=== PATIENT | male | born 2000 | race Caucasian/White ===

== ENCOUNTER 2022-12-30 02:31 | Outpatient (CLI) | payer BC, SELFPAY | END 2022-12-30 02:32 | disposition home or self-care (01) | LOC: AMB 01-01 09:41 | PROVIDERS: Visit Provider Family Medicine | DX: R45.851 Suicidal ideations (principal) | CPT/HCPCS: A0425; A0429 ==

== ENCOUNTER 2022-12-30 02:58 | Emergency (ER) | payer BC, SELFPAY ==
[2022-12-30 02:59] VITALS: BP 141/100; PULSE 83; TEMP 36.1; O2SAT 96; BMI 20.6
--- NOTE | 2022-12-30 03:17 | PC.NURSE ---
patient placed in room 2, room 2 made safe room. patient changed into paper scrubs and personal items inventoried by security and locked in med room
--- NOTE | 2022-12-30 03:34 | ED_ITS ---
HPI - Psych General Chief Complaint: Psychiatric Problem/Disorder <Lidya Osman MD - Last Filed: 12/30/22 07:50> Stated Complaint: Mental Health <Lidya Osman MD - Last Filed: 12/30/22 07:50> Time Seen by Provider: 12/30/22 03:14 <Lidya Osman MD - Last Filed: 12/30/22 07:50> Source: patient and EMS <Lidya Osman MD - Last Filed: 12/30/22 07:50> Mode of arrival: EMS <Lidya Osman MD - Last Filed: 12/30/22 07:50> History of Present Illness HPI Narrative: 22-year-old male with prior inpatient mental health hospitalization presents to the emergency department with suicidal ideation. Patient's girlfriend called EMS because she found him with the waist tie of his rope around his neck stating that he was going to go to the [facility] and hang himself from it. He is very vague about his depression symptoms and suicidal ideation to me. It is very difficult to piece together this story. From what I can gather, he was hospitalized at [facility] in September of 2021. He tells me that he was not diagnosed with any mental health problems. He does however agree that he was discharged on a medication but believes he stopped after a couple of days. Is instructed to follow up with a provider at [facility] which he did. I can not tell if this was a mental health provider or a primary care provider. Nonetheless, patient has not been on medication for well over a year. He feels like he has been having increased suicidal ideation over the last couple of days. He does state that he would be willing to be hospitalized again, but does not have any insight into depression, anxiety or his feelings. He does have a history of daily marijuana use. He states that he does wonder if the marijuana is ?laced?. He quit his job in the last couple of weeks at [employer], thinking that he had something more promising lined up which fell through. When I ask about a significant other, he denies to me, stating probably not anymore but does not elaborate further. He does have family in the area, reports to me that he last talked to his brother's within the last 24 hours. It sounds like his father is not involved and his mother has a history of depression and bipolar but is involved in his life. He reports binge drinking on occasion, sounds like a few times per month. He also will sporadically use methamphetamines or Adderall, especially when working. He states today last use those around Thanksgiving. He notes no fever, no recent significant illness. No trauma, no history of self-injury. He denies any prior history of suicide attempt, but I do not have the details regarding his previous hospitalization. Girlfriend called EMS. He has been placed on a police hold. Past medical history notable for some sort of mental health hospitalization though I cannot see the details as to what. Also history of polysubstance abuse. No long-term medications, no allergies. Socially with binge drinking of alcohol, daily marijuana and sporadic amphetamines. Family history notable for depression and bipolar in his mother. Sounds like father had AIDS and cancer and is not involved in the patient's life. ROS is notable for the mood symptoms as above, otherwise denies times 12 systems, but with very poor insight. <Lidya Osman MD - Last Filed: 12/30/22 07:50> Related Data Allergies/Adverse Reactions: Allergies Allergy/AdvReac Type Severity Reaction Status Date / Time No Known Drug Allergies Allergy Verified 12/30/22 08:53 <Lidya Osman MD - Last Filed: 12/30/22 07:50> [facility] Social History: Social History Smoking Status: Never smoker Do you use any of these nicotine containing products: None How often do you have a drink containing alcohol: monthly or less AUDIT-C Alcohol total score: 1 Non-prescribed substance use: marijuana (any form) <Lidya Osman MD - Last Filed: 12/30/22 07:50> Exam Const: Vital Signs, click to edit/add: Vital Signs - 24 hr 12/30/22 02:59 12/30/22 04:03 12/30/22 05:30 Temperature 97 F L Pulse Rate [Pulse Oximeter] 83 70 Respiratory Rate 18 16 Blood Pressure [Le ft Upper Arm] 141/100 H 139/87 Pulse Oximetry 96 98 Oxygen Delivery Me thod Room Air Room Air 12/30/22 07:46 Temperature 98 F Pulse Rate [Pulse Oximeter] 73 Respiratory Rate 16 Blood Pressure [Le ft Upper Arm] 140/93 H Pulse Oximetry 98 Oxygen Delivery Me thod Room Air <Lidya Osman MD - Last Filed: 12/30/22 07:50> Vital Signs, click to edit/add: Vital Signs - 24 hr 12/30/22 02:59 12/30/22 04:03 12/30/22 05:30 Temperature 97 F L Pulse Rate [Pulse Oximeter] 83 70 Respiratory Rate 18 16 Blood Pressure [Le ft Upper Arm] 141/100 H 139/87 Pulse Oximetry 96 98 Oxygen Delivery Me thod Room Air Room Air 12/30/22 07:46 Temperature 98 F Pulse Rate [Pulse Oximeter] 73 Respiratory Rate 16 Blood Pressure [Le ft Upper Arm] 140/93 H Pulse Oximetry 98 Oxygen Delivery Me thod Room Air <Shayy Lennon MD - Last Filed: 12/30/22 12:29> Documenting provider has reviewed patient's vital signs: yes <Lidya Osman MD - Last Filed: 12/30/22 07:50> Common normals: alert <Lidya Osman MD - Last Filed: 12/30/22 07:50> General appearance: well kempt <Lidya Osman MD - Last Filed: 12/30/22 07:50> Orientation/consciousness: Yes awake <Lidya Osman MD - Last Filed: 12/30/22 07:50> Other: Calm, somewhat evasive with questions. Very poor insight. Normal grooming. No signs of trauma, self-injury. <Lidya Osman MD - Last Filed: 12/30/22 07:50> HENMT: Common normals: normocephalic <Lidya Osman MD - Last Filed: 12/30/22 07:50> Head and scalp: normal to inspection and normocephalic <Lidya Osman MD - Last Filed: 12/30/22 07:50> Face and sinus: normal facial exam <Lidya Osman MD - Last Filed: 12/30/22 07:50> Mouth: oral and palatal mucosa normal <MD Jonathan Thibodeaux Last Filed: 12/30/22 07:50> Eye: Common normals: PERRL, EOMs intact bilaterally and conjunctivae normal <MD Jonathan Thibodeaux Last Filed: 12/30/22 07:50> Conjunctiva: conjunctiva(e) normal <MD Jonathan Thibodeaux Last Filed: 12/30/22 07:50> Pupil: PERRL <MD Jonathan Thibodeaux Last Filed: 12/30/22 07:50> Neck & C-Spine: Common normals: full ROM and no lymphadenopathy <MD Jonathan Thibodeaux Last Filed: 12/30/22 07:50> Resp: Common normals: normal respiratory effort, no use of accessory muscles and clear to auscultation bilaterally <MD Jonathan Thibodeaux Last Filed: 12/30/22 07:50> Effort & inspection: able to speak in complete sentences <MD Jonathan Thibodeaux Last Filed: 12/30/22 07:50> Auscultation: clear to auscultation bilaterally <MD Jonathan Thibodeaux Last Filed: 12/30/22 07:50> Cardio: Common normals: regular rate, regular rhythm, S1 normal heart sound, S2 normal heart sound and no murmurs <MD Jonathan Thibodeaux Last Filed: 12/30/22 07:50> Rate: regular rate <MD Jonathan Thibodeaux Last Filed: 12/30/22 07:50> Rhythm: regular rhythm <MD Jonathan Thibodeaux Last Filed: 12/30/22 07:50> Heart sounds: S1 normal and S2 normal <MD Jonathan Thibodeaux Last Filed: 12/30/22 07:50> GI: Common normals: Normal to inspection, nondistended, normoactive bowel sounds present, soft to palpation, non-tender, no hepatosplenomegaly and no masses <MD Jonathan Thibodeaux Last Filed: 12/30/22 07:50> Palpation: soft and no hepatosplenomegaly <MD Jonathan Thibodeaux Last Filed: 12/30/22 07:50> Back & Pelvis: Common normals: thoracic and lumbar spine normal to inspection <MD Jonathan Thibodeaux Last Filed: 12/30/22 07:50> Extremity: Common normals: normal to inspection, full ROM, normal capillary refill and no pedal edema <Lidya Osman MD - Last Filed: 12/30/22 07:50> Neuro: [place] Coma Scale: document GCS findings [place] coma scale eye opening: Spontaneous (4) Marta coma scale verbal response: Orientated (5) Marta coma scale motor response: Obey commands (6) [place] coma scale total score: 15 <MD Jonathan Thibodeaux Last Filed: 12/30/22 07:50> [place] Coma Scale: document GCS findings [place] coma scale total score: 15 <Shayy Lennon MD - Last Filed: 12/30/22 12:29> Sensorium/orientation: awake and alert <MD Jonathan Thibodeaux Last Filed: 12/30/22 07:50> Motor exam: no tremor noted and no movement abnormalities noted <Lidya Osman MD - Last Filed: 12/30/22 07:50> Psych: Appearance: well kempt <MD Jonathan Thibodeaux Last Filed: 12/30/22 07:50> Attitude: calm and withdrawn <MD Jonathan Thibodeaux Last Filed: 12/30/22 07:50> Mood and affect: flat affect <MD Jonathan Thibodeaux Last Filed: 12/30/22 07:50> Thought content: no homicidality, no delusion(s) and no hallucination(s) <MD Jonathan Thibodeaux Last Filed: 12/30/22 07:50> Insight: limited <MD Jonathan Thibodeaux Last Filed: 12/30/22 07:50> Judgement: fair <MD Jonathan Thibodeaux Last Filed: 12/30/22 07:50> Skin: Common normals: no rashes or lesions noted <Lidya Osman MD - Last Filed: 12/30/22 07:50> Narrative: No signs of trauma or self-injury on skin <Lidya Osman MD - Last Filed: 12/30/22 07:50> General skin exam: no rashes or lesions noted <Lidya Osman MD - Last Filed: 12/30/22 07:50> Course Course Hospital Course: Took over the care for this patient. Lab work was fairly unremarkable. Urine drug screen positive for THC. Patient remained cooperative during his stay here. Except for transfer to [facility]. Of note, we did learn that the patient has history of schizophrenia has been off of his medications for the last 4-6 weeks. <Lidya Osman MD - Last Filed: 12/30/22 07:50> Vital Signs Vital signs: Initial Vital Signs Temperature 97 F L 12/30/22 02:59 Temperature Source Temporal Artery Scan 12/30/22 02:59 Pulse Rate 83 12/30/22 02:59 Blood Pressure 141/100 H 12/30/22 02:59 Blood Pressure Mean 113 12/30/22 02:59 Pulse Oximetry 96 12/30/22 02:59 Oxygen Delivery Method 12/30/22 02:59 Vital Signs Temperature 97 F L 12/30/22 02:59 Pulse Rate 83 12/30/22 02:59 Blood Pressure 141/100 H 12/30/22 02:59 Pulse Oximetry 96 12/30/22 02:59 Oxygen Delivery Method 12/30/22 02:59 Temperature 98 F 12/30/22 07:46 Pulse Rate 73 12/30/22 07:46 Respiratory Rate 16 12/30/22 07:46 Blood Pressure 140/93 H 12/30/22 07:46 Pulse Oximetry 98 12/30/22 07:46 Oxygen Delivery Method 12/30/22 07:46 <Lidya Osman MD - Last Filed: 12/30/22 07:50> Initial Vital Signs Temperature 97 F L 12/30/22 02:59 Temperature Source Temporal Artery Scan 12/30/22 02:59 Pulse Rate 83 12/30/22 02:59 Blood Pressure 141/100 H 12/30/22 02:59 Blood Pressure Mean 113 12/30/22 02:59 Pulse Oximetry 96 12/30/22 02:59 Oxygen Delivery Method 12/30/22 02:59 Vital Signs Temperature 97 F L 12/30/22 02:59 Pulse Rate 83 12/30/22 02:59 Blood Pressure 141/100 H 12/30/22 02:59 Pulse Oximetry 96 12/30/22 02:59 Oxygen Delivery Method 12/30/22 02:59 Temperature 98 F 12/30/22 07:46 Pulse Rate 73 12/30/22 07:46 Respiratory Rate 16 12/30/22 07:46 Blood Pressure 140/93 H 12/30/22 07:46 Pulse Oximetry 98 12/30/22 07:46 Oxygen Delivery Method 12/30/22 07:46 <Shayy Lennon MD - Last Filed: 12/30/22 12:29> MDM - Psych MDM Narrative Medical decision making narrative: Patient with suicidal plan, witnessed tonight by girlfriend. I do believe these high risk for suicide completion due to his poor insight, escalating symptoms over the last few days, quitting of job, marginalization of relationships. Patient is already on a police hold. Will obtain basic screening labs including toxicology. Await psychology assessment. I suspect he may benefit from hospitalization. Spoke with Dionna from [facility], she is recommending inpatient treatment, I agree. She will be in the process of locating an inpatient placement. Hold paperwork completed in anticipation of transfer. Will transfer care to my oncoming day shift partner. <Lidya Osman MD - Last Filed: 12/30/22 07:50> Differential Diagnosis Differential diagnosis: Likely suicidal ideation, depression and drug-induced psychotic disorder <Lidya Osman MD - Last Filed: 12/30/22 07:50> Medical Records Attestation: I reviewed the patient's medical records. <Lidya Osman MD - Last Filed: 12/30/22 07:50> Medical records narrative: History and physical from September of 2020, limited ER note from September of 2021. <Lidya Osman MD - Last Filed: 12/30/22 07:50> Lab Data Attestation: I reviewed the patient's lab results. <Lidya Osman MD - Last Filed: 12/30/22 07:50> Labs: Lab Results 12/30/22 12/30/22 12/30/22 Range/Units 03:32 03:50 03:50 WBC (4.50-11.00) K/uL RBC (4.30-5.90) m/uL Hgb (13.5-17.5) gm/dL Hct (37.0-53.0) % MCV (80-100) fL MCH (26-34) pg MCHC (32-36) gm/dL RDW Coeff of Tamia (11.5-15.5) % Plt Count (140-440) K/uL Neut % (Auto) (42.0-72.0) % Lymph % (Auto) (20-44) % Owen % (Auto) (0.0-11.0) % Eos % (Auto) (0.0-7.0) % Baso % (Auto) (0.0-3.0) % Neut # (Auto) (1.7-7.0) K/uL Lymph # (Auto) (0.90-2.90) K/uL Owen # (Auto) (0.00-0.90) K/UL Eos # (Auto) (0.00-0.50) K/uL Baso # (Auto) (0.00-0.30) K/uL Sodium (135-149) mmol/L Potassium (3.6-5.1) mmol/L Chloride (96-114) mmol/L Carbon Dioxide (20-32) mmol/L BUN (5-24) mg/dL Creatinine (0.5-1.5) mg/dL Estimated Creat Clear Estimated GFR ml/min Glucose (60-115) mg/dL Calcium (8.4-10.6) mg/dL TSH 3.390 (0.270-4.200) uIU/mL Salicylates (1.0-10) mg/dL Urine Opiates Screen Negative (Negative) Ur Oxycodone Screen Negative (Negative) Urine Methadone Screen Negative (Negative) Ur Propoxyphene Screen Negative (Negative) Acetaminophen (10.0-30.0) ug/mL Ur Barbiturates Screen Negative (Negative) U Tricyclic Antidepress Negative (Negative) Ur Phencyclidine Scrn Negative (Negative) Ur Amphetamines Screen Negative (Negative) U Methamphetamines Scrn Negative (Negative) U Benzodiazepines Scrn Negative (Negative) Urine Cocaine Screen Negative (Negative) U Marijuana (THC) Screen POSITIVE A* (Negative) Ur Drug Screen Comment See Note Ethyl Alcohol (0.01-0.03) % SARS-CoV-2 (PCR) Negative SARS-CoV-2 (Negative) 12/30/22 12/30/22 Range/Units 03:50 03:50 WBC 9.96 (4.50-11.00) K/uL RBC 6.07 H (4.30-5.90) m/uL Hgb 18.6 H (13.5-17.5) gm/dL Hct 52.5 (37.0-53.0) % MCV 87 (80-100) fL MCH 31 (26-34) pg MCHC 35 (32-36) gm/dL RDW Coeff of Tamia 11.3 L (11.5-15.5) % Plt Count 231 (140-440) K/uL Neut % (Auto) 78.4 H (42.0-72.0) % Lymph % (Auto) 13.7 L (20-44) % Owen % (Auto) 6.9 (0.0-11.0) % Eos % (Auto) 0.3 (0.0-7.0) % Baso % (Auto) 0.3 (0.0-3.0) % Neut # (Auto) 7.80 H (1.7-7.0) K/uL Lymph # (Auto) 1.40 (0.90-2.90) K/uL Owen # (Auto) 0.70 (0.00-0.90) K/UL Eos # (Auto) 0.03 (0.00-0.50) K/uL Baso # (Auto) 0.03 (0.00-0.30) K/uL Sodium 141 (135-149) mmol/L Potassium 3.3 L (3.6-5.1) mmol/L Chloride 106 (96-114) mmol/L Carbon Dioxide 25 (20-32) mmol/L BUN 17 (5-24) mg/dL Creatinine 0.8 (0.5-1.5) mg/dL Estimated Creat Clear 153.32 Estimated GFR 128 ml/min Glucose 114 (60-115) mg/dL Calcium 9.8 (8.4-10.6) mg/dL TSH (0.270-4.200) uIU/mL Salicylates < 1.0 L (1.0-10) mg/dL Urine Opiates Screen (Negative) Ur Oxycodone Screen (Negative) Urine Methadone Screen (Negative) Ur Propoxyphene Screen (Negative) Acetaminophen < 10.0 L (10.0-30.0) ug/mL Ur Barbiturates Screen (Negative) U Tricyclic Antidepress (Negative) Ur Phencyclidine Scrn (Negative) Ur Amphetamines Screen (Negative) U Methamphetamines Scrn (Negative) U Benzodiazepines Scrn (Negative) Urine Cocaine Screen (Negative) U Marijuana (THC) Screen (Negative) Ur Drug Screen Comment Ethyl Alcohol < 0.01 L (0.01-0.03) % SARS-CoV-2 (PCR) (Negative) <Lidya Osman MD - Last Filed: 12/30/22 07:50> Lab Results 12/30/22 12/30/22 12/30/22 Range/Units 03:32 03:50 03:50 WBC (4.50-11.00) K/uL RBC (4.30-5.90) m/uL Hgb (13.5-17.5) gm/dL Hct (37.0-53.0) % MCV (80-100) fL MCH (26-34) pg MCHC (32-36) gm/dL RDW Coeff of Tamia (11.5-15.5) % Plt Count (140-440) K/uL Neut % (Auto) (42.0-72.0) % Lymph % (Auto) (20-44) % Owen % (Auto) (0.0-11.0) % Eos % (Auto) (0.0-7.0) % Baso % (Auto) (0.0-3.0) % Neut # (Auto) (1.7-7.0) K/uL Lymph # (Auto) (0.90-2.90) K/uL Owen # (Auto) (0.00-0.90) K/UL Eos # (Auto) (0.00-0.50) K/uL Baso # (Auto) (0.00-0.30) K/uL Sodium (135-149) mmol/L Potassium (3.6-5.1) mmol/L Chloride (96-114) mmol/L Carbon Dioxide (20-32) mmol/L BUN (5-24) mg/dL Creatinine (0.5-1.5) mg/dL Estimated Creat Clear Estimated GFR ml/min Glucose (60-115) mg/dL Calcium (8.4-10.6) mg/dL TSH 3.390 (0.270-4.200) uIU/mL Salicylates (1.0-10) mg/dL Urine Opiates Screen Negative (Negative) Ur Oxycodone Screen Negative (Negative) Urine Methadone Screen Negative (Negative) Ur Propoxyphene Screen Negative (Negative) Acetaminophen (10.0-30.0) ug/mL Ur Barbiturates Screen Negative (Negative) U Tricyclic Antidepress Negative (Negative) Ur Phencyclidine Scrn Negative (Negative) Ur Amphetamines Screen Negative (Negative) U Methamphetamines Scrn Negative (Negative) U Benzodiazepines Scrn Negative (Negative) Urine Cocaine Screen Negative (Negative) U Marijuana (THC) Screen POSITIVE A* (Negative) Ur Drug Screen Comment See Note Ethyl Alcohol (0.01-0.03) % SARS-CoV-2 (PCR) Negative SARS-CoV-2 (Negative) 12/30/22 12/30/22 Range/Units 03:50 03:50 WBC 9.96 (4.50-11.00) K/uL RBC 6.07 H (4.30-5.90) m/uL Hgb 18.6 H (13.5-17.5) gm/dL Hct 52.5 (37.0-53.0) % MCV 87 (80-100) fL MCH 31 (26-34) pg MCHC 35 (32-36) gm/dL RDW Coeff of Tamia 11.3 L (11.5-15.5) % Plt Count 231 (140-440) K/uL Neut % (Auto) 78.4 H (42.0-72.0) % Lymph % (Auto) 13.7 L (20-44) % Owen % (Auto) 6.9 (0.0-11.0) % Eos % (Auto) 0.3 (0.0-7.0) % Baso % (Auto) 0.3 (0.0-3.0) % Neut # (Auto) 7.80 H (1.7-7.0) K/uL Lymph # (Auto) 1.40 (0.90-2.90) K/uL Owen # (Auto) 0.70 (0.00-0.90) K/UL Eos # (Auto) 0.03 (0.00-0.50) K/uL Baso # (Auto) 0.03 (0.00-0.30) K/uL Sodium 141 (135-149) mmol/L Potassium 3.3 L (3.6-5.1) mmol/L Chloride 106 (96-114) mmol/L Carbon Dioxide 25 (20-32) mmol/L BUN 17 (5-24) mg/dL Creatinine 0.8 (0.5-1.5) mg/dL Estimated Creat Clear 153.32 Estimated GFR 128 ml/min Glucose 114 (60-115) mg/dL Calcium 9.8 (8.4-10.6) mg/dL TSH (0.270-4.200) uIU/mL Salicylates < 1.0 L (1.0-10) mg/dL Urine Opiates Screen (Negative) Ur Oxycodone Screen (Negative) Urine Methadone Screen (Negative) Ur Propoxyphene Screen (Negative) Acetaminophen < 10.0 L (10.0-30.0) ug/mL Ur Barbiturates Screen (Negative) U Tricyclic Antidepress (Negative) Ur Phencyclidine Scrn (Negative) Ur Amphetamines Screen (Negative) U Methamphetamines Scrn (Negative) U Benzodiazepines Scrn (Negative) Urine Cocaine Screen (Negative) U Marijuana (THC) Screen (Negative) Ur Drug Screen Comment Ethyl Alcohol < 0.01 L (0.01-0.03) % SARS-CoV-2 (PCR) (Negative) <Shayy Lennon MD - Last Filed: 12/30/22 12:29> Discharge Plan Discharge Clinical Impression: Suicidal ideation, Schizophrenia <Lidya Osman MD - Last Filed: 12/30/22 07:50> Patient Disposition: Xfer Psychiatric Hosp <Lidya Osman MD - Last Filed: 12/30/22 07:50> Condition: Stable <Lidya Osman MD - Last Filed: 12/30/22 07:50> Follow Up/Referrals: Provider,Not a Local [Primary Care Provider] - <Lidya Osman MD - Last Filed: 12/30/22 07:50> Stand Alone Forms: MyHealth Info Instructions <Lidya Osman MD - Last Filed: 12/30/22 07:50>
[2022-12-30 04:02] LABS: Basophils Absolute Auto 0.03 K/uL (0.00-0.30); Basophils Percent Auto 0.3 % (0.0-3.0); Eosinophils Absolute Auto 0.03 K/uL (0.00-0.50); Eosinophils Percent Auto 0.3 % (0.0-7.0); Hematocrit 52.5 % (37.0-53.0); Hemoglobin* 18.6 gm/dL (13.5-17.5); Immature Granulocytes Abs Auto 0.04 K/uL (0.00-0.30); Immature Granulocytes Pct Auto 0.4 %; Lymphocytes Percent Auto 13.7 % (20-44); Mean Corpuscular HGB Conc 35 gm/dL (32-36); Mean Corpuscular Hemoglobin 31 pg (26-34); Mean Corpuscular Volume 87 fL (80-100); Monocytes Percent Auto 6.9 % (0.0-11.0); Neutrophils Percent Auto 78.4 % (42.0-72.0); Platelet Count* 231 K/uL (140-440); RDW Coefficient of Variation % 11.3 % (11.5-15.5); Red Blood Count 6.07 m/uL (4.30-5.90); White Blood Count* 9.96 K/uL (4.50-11.00)
[2022-12-30 04:03] VITALS: BP 139/87; PULSE 70; RESP 18; O2SAT 98
[2022-12-30 04:03] LABS: Slide Review Reflex No
--- NOTE | 2022-12-30 04:04 | PC.NURSE ---
patient 1:1 surveillance with video monitor. resting in bed.
[2022-12-30 04:11] LABS: Chloride* 106 mmol/L (96-114)
[2022-12-30 04:12] LABS: Potassium* 3.3 mmol/L (3.6-5.1); Sodium* 141 mmol/L (135-149)
[2022-12-30 04:14] LABS: Creatinine* 0.8 mg/dL (0.5-1.5); Est. Creatinine Clearance* 153.32; Estimated Glomerular Filt Rate 128 ml/min
[2022-12-30 04:15] LABS: Blood Urea Nitrogen* 17 mg/dL (5-24); Calcium* 9.8 mg/dL (8.4-10.6); Carbon Dioxide* 25 mmol/L (20-32); Ethanol* < 0.01 % (0.01-0.03); Glucose* 114 mg/dL (60-115)
[2022-12-30 04:16] LABS: Acetaminophen* < 10.0 ug/mL (10.0-30.0); Salicylate* < 1.0 mg/dL (1.0-10)
[2022-12-30 04:34] LABS: SARS PCR* Negative SARS-CoV-2 (Negative)
[2022-12-30 05:30] VITALS: RESP 16
--- NOTE | 2022-12-30 06:36 | PC.NURSE ---
patient talking to DEC at this time
--- NOTE | 2022-12-30 07:23 | ED.NURSE ---
report received, care taken over. pt currently having DEC assessment
[2022-12-30 07:46] VITALS: BP 140/93; PULSE 73; RESP 16; TEMP 36.6; O2SAT 98
--- NOTE | 2022-12-30 07:47 | ED.NURSE ---
pt finished sep assessment. pt up to br, urine collected and sent to lab. pt declines breakfast at this time. pt quiet, little verbal. pt cooperative
[2022-12-30 07:58] LABS: Amphetamine Screen Urine Negative (Negative); Barbiturate Screen Urine Negative (Negative); Benzodiazepines Screen Urine Negative (Negative); Cocaine Screen Urine Negative (Negative); Methadone Screen Urine Negative (Negative); Methamphetamines Screen Urine Negative (Negative); Opiate Screen Urine Negative (Negative); Oxycodone Screen Urine Negative (Negative); Phencyclidine Screen Urine Negative (Negative); Tricyclic Antidepressant Urine Negative (Negative)
--- NOTE | 2022-12-30 08:08 | ED.NURSE ---
Received a call from Lois Landers ([phone]) who is pt's [facility] medical social consultant, she last saw pt on saturday and reported him missing on saturday. [facility] contacted her to let her know pt was here. states pt has hx schizophrenia and has been off meds for 4-6 weeks. thinks he was on olanzipine and antidepressant.
[2022-12-30 08:19] LABS: Cannabinoid Screen Urine POSITIVE (Negative)
--- NOTE | 2022-12-30 12:33 | ED.NURSE ---
pt accepted [facility]. report given to nguyen at [phone]. they can not take pt until 1500. will try to schedule transport for 1330
[2022-12-30 13:29] VITALS: BP 142/88; PULSE 64; RESP 16; TEMP 36.8; O2SAT 97
--- NOTE | 2022-12-30 13:31 | ED.NURSE ---
pt only ate small amount of lunch. denies pain. pt flat affect, little verbal. pt given notice of rights
--- NOTE | 2022-12-30 13:37 | ED.NURSE ---
pt transferred to [facility] via [facility]
== END 2022-12-30 13:39 ==
PROVIDERS: Family Medicine; Emergency Provider Family Medicine
DX: R45.851 Suicidal ideations (principal); F20.9 Schizophrenia, unspecified
CPT/HCPCS: 36415; 80048; 80143; 80179; 80306; 82077; 84443; 85025; 87635; 99284; 99285

== ENCOUNTER 2022-12-30 13:33 | Outpatient (CLI) | payer BC, SELFPAY | END 2022-12-30 13:34 | disposition home or self-care (01) | LOC: AMB 01-01 10:04 | PROVIDERS: Visit Provider Family Medicine | DX: R45.851 Suicidal ideations (principal) | CPT/HCPCS: A0425; A0428; A0429 ==